=== PATIENT | female | born 1960 | race Caucasian/White ===

== ENCOUNTER 2017-12-02 15:49 | Emergency (ER) | payer OTHER ==
[~2017-12-02] VITALS: Ht 175.3 cm; Wt 99.3 kg
[2017-12-02 15:51] VITALS: BP 137/78
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
[2017-12-02] MEDS ORDERED: VALIUM2 M1 PO (16:24)
== END 2017-12-02 16:37 ==
LOC: ERH 15:49
DX: S29.012A Strain of muscle and tendon of back wall of thorax, initial encounter (principal); V49.40XA Driver injured in collision with unspecified motor vehicles in traffic accident, initial encounter; Y92.410 Unspecified street and highway as the place of occurrence of the external cause